=== PATIENT | male | born 1980 | race Hispanic/Latino ===

== ENCOUNTER 2019-10-18 11:04 | Emergency (ER) | payer SELFPAY ==
[2019-10-18 11:46] LABS: RAPID GROUP A STREP NEGATIVE (NEGATIVE)
== END 2019-10-18 12:25 | disposition home or self-care (01) ==
LOC: EDH 11:04
DX: J06.9 Acute upper respiratory infection, unspecified (principal)
CPT/HCPCS: 71046; 87804; 87880